=== PATIENT | male | born 1995 | race Hispanic/Latino ===

== ENCOUNTER 2017-12-11 13:13 | Emergency (ER) | payer BC ==
[2017-12-11 13:33] VITALS: BMI 33.0
--- NOTE | 2017-12-11 13:33 | ED PDOC ---
Arrival/HPI - General Time Seen by Provider: 12/11/17 13:27 Historian: Patient, Parent (dad) - History of Present Illness Narrative History of Present Illness (Text): 12/11/17 13:34 A 22 year old male, with no significant past medical history, presents to the emergency department complaining of headache for 1 week. Patient reports headaches occur when having sexual intercourse. Patient denies any head trauma, falls, vomiting, numbness/tingling, or any other complaints. PMD: Dr. Hicks Time/Duration: 1 week Symptom Onset: Gradual Symptom Course: Unchanged Past Medical History - Provider Review Nursing Documentation Reviewed: Yes Family/Social History - Physician Review Nursing Documentation Reviewed: Yes Family/Social History: No Known Family HX Allergies/Home Meds Allergies/Adverse Reactions: Allergies No Known Allergies Allergy (Verified 12/11/17 13:32) Review of Systems - Physician Review All systems were reviewed & negative as marked: Yes - Review of Systems Constitutional: absent: Other (no head trauma, no falls) Gastrointestinal: absent: Vomiting Neurological: Headache (when having sexual intercourse). absent: Focal Weakness , Other (no numbness/tingling) Physical Exam Vital Signs Reviewed: Yes Vital Signs Temp Pulse Resp BP Pulse Ox 12/11/17 13:33 98.4 F 78 18 116/72 99 Appearance: Positive for: Well-Appearing Pain Distress: None Mental Status: Positive for: Alert and Oriented X 3 - Systems Exam Head: Present: Atraumatic, Normocephalic Pupils: Present: PERRL Extroacular Muscles: Present: EOMI Conjunctiva: Present: Normal Mouth: Present: Moist Mucous Membranes Neck: Present: Normal Range of Motion Respiratory/Chest: Present: Clear to Auscultation, Good Air Exchange. No: Respiratory Distress, Accessory Muscle Use Cardiovascular: Present: Regular Rate and Rhythm, Normal S1, S2. No: Murmurs Abdomen: Present: Normal Bowel Sounds. No: Tenderness, Distention, Peritoneal Signs Back: Present: Normal Inspection Upper Extremity: Present: Normal Inspection. No: Cyanosis, Edema Lower Extremity: Present: Normal Inspection. No: Edema Neurological: Present: GCS=15, CN II-XII Intact, Speech Normal Skin: Present: Warm, Dry, Normal Color. No: Rashes Psychiatric: Present: Alert, Oriented x 3, Normal Insight, Normal Concentration Medical Decision Making ED Course and Treatment: 12/11/17 13:35 Impression: 22 year old male with headache. No acute findings on physical examination. Plan: -- Naproxen -- Reassess and disposition Progress Notes: - Medication Orders Current Medication Orders: Naproxen (Anaprox Ds) 550 mg PO BID NIKO - Scribe Statement The provider has reviewed the documentation as recorded by the Mehreen Garza Provider Scribe Attestation: All medical record entries made by the Mehreen were at my direction and personally dictated by me. I have reviewed the chart and agree that the record accurately reflects my personal performance of the history, physical exam, medical decision making, and the department course for this patient. I have also personally directed, reviewed, and agree with the discharge instructions and disposition. Disposition/Present on Arrival - Present on Arrival Any Indicators Present on Arrival: No History of DVT/PE: No History of Uncontrolled Diabetes: No Urinary Catheter: No History of Decub. Ulcer: No - Disposition Have Diagnosis and Disposition been Completed?: Yes Diagnosis: Tension headache, Cervicogenic headache Disposition: HOME/ ROUTINE Disposition Time: 13:45 Patient Plan: Discharge Condition: STABLE Additional Instructions: see your doctor for further evaluation if headache persists. Prescriptions: Methocarbamol [Robaxin] 750 mg PO TID #15 tab Naproxen [Naprosyn] 500 mg PO BID PRN #14 tablet PRN Reason: Headache
[2017-12-11 13:45] VITALS: BP 116/72; PULSE 78; RESP 18; TEMP 98.4; O2SAT 99
[2017-12-11] MEDS ORDERED: Naproxen 550 mg Tab PO SCH (18:00)
== END 2017-12-11 13:57 | disposition home or self-care (01) ==
LOC: ED 13:13
DX: G44.209 Tension-type headache, unspecified, not intractable (principal)